=== PATIENT | female | born 1990 | race Caucasian/White ===

== ENCOUNTER 2018-10-22 11:23 | Emergency (ER) | payer OTHER ==
[~2018-10-22] VITALS: Ht 162.6 cm; Wt 68.0 kg
--- NOTE | 2018-10-22 11:35 | NUR ---
c/o boil vaginal area x 3 days. STATES PAIN LEVEL 10/10. PT IS AOX4, AMBULATORY, VSS, RESPIRATIONS EVEN AND UNLABORED. NO ACUTE DISTRESS NOTED. SKIN WARM TO TOUCH, DRY, INTACT. READY FOR EVAL.
--- NOTE | 2018-10-22 11:37 | NUR ---
CHRIS CRUZ AT BEDSIDE
[2018-10-22] MEDS ORDERED: LIDOCAINE 1%-EPI 1:100,000 20 ML VIAL ONE (11:52)
[2018-10-22] MEDS ORDERED: FENTANYL PF 100MCG/2ML AMPUL ONE ×2 (11:53→12:48)
[2018-10-22] MEDS ORDERED: FENTANYL PF 100MCG/2ML AMPUL IV ONE ×2 (12:00→13:00)
[2018-10-22] MEDS ORDERED: LIDOCAINE 1%-EPI 1:100,000 20 ML VIAL TP ONE (12:00)
[2018-10-22] MEDS ORDERED: KETOROLAC TROMETHAMINE INJ 30 MG/ML VIAL ONE (12:48)
[2018-10-22] MEDS ORDERED: KETOROLAC TROMETHAMINE INJ 30 MG/ML VIAL IV ONE (13:00)
--- NOTE | 2018-10-22 13:15 | NUR ---
ASSIST CHRIS CRUZ WITH I&D. PT TOLERATED WELL
[2018-10-22] MEDS ORDERED: SULFAMETH/TRIMETH 800/160 MG 1 UDTAB TABLET PO ONE ×2 (13:16→13:30)
[2018-10-22] MEDS ORDERED: CEPHALEXIN MONOHYDRATE 500 MG CAPSULE PO ONE ×2 (13:16→13:30)
--- NOTE | 2018-10-22 13:25 | NUR ---
IV removed. Catheter intact and site benign. Pressure and 4x4 applied to site. No bleeding noted. Patient discharged to home in stable condition. Written and verbal after care instructions given. Patient verbalizes understanding of instruction.
[2018-10-22 13:32] VITALS: BP 136/76
== END 2018-10-22 13:23 | disposition home or self-care (01) ==
LOC: ER 11:25
DX: L02.215 Cutaneous abscess of perineum (principal)
CPT/HCPCS: A4606; A6403; A6407; J1885; J3010; J3490; Z7610

== ENCOUNTER 2018-10-24 09:50 | Emergency (ER) | END 2018-10-24 10:14 | disposition home or self-care (01) | DX: L02.91 Cutaneous abscess, unspecified (principal) ==

== ENCOUNTER 2019-12-30 10:38 | Emergency (ER) | payer OTHER ==
[~2019-12-30] VITALS: Ht 165.1 cm; Wt 79.4 kg
--- NOTE | 2019-12-30 11:00 | NUR ---
patient came in to the er c/o worsening left leg pain/numbness, injured 2 days ago when she jumped on a scooter, seen at the urgent care. On room air, breathing evenly and unlabored. connected to the monitor and pulse ox. kept comfortable, will continue to monitor accordingly.
--- NOTE | 2019-12-30 11:05 | NUR ---
franck at bedside for x-ray
[2019-12-30 11:24] VITALS: BP 124/91
--- NOTE | 2019-12-30 11:24 | NUR ---
Patient discharged to home in stable condition. Written and verbal after care instructions given. Patient verbalizes understanding of instruction.
== END 2019-12-30 11:24 | disposition home or self-care (01) ==
LOC: ER 10:44
DX: S86.812A Strain of other muscle(s) and tendon(s) at lower leg level, left leg, initial encounter (principal); W18.39XA Other fall on same level, initial encounter; Y93.89 Activity, other specified; Y92.89 Other specified places as the place of occurrence of the external cause; Y99.8 Other external cause status
CPT/HCPCS: 73564-TC

== ENCOUNTER 2020-11-22 23:20 | Emergency (ER) | payer OTHER ==
[~2020-11-22] VITALS: Ht 162.6 cm; Wt 79.4 kg
--- NOTE | 2020-11-22 23:25 | NUR ---
PT BIBSELF C/O DIZZINESS, R FACIAL NUMBNESS, AND R ARM NUMBNESS X3 DAYS. ALSO C/O SOB. PT AAOX4. VITAL SIGNS STABLE. AMBULATORY WITH STEADY GAIT. NO NEURO DEFICIT NOTED. WILL CONTINUE TO MONITOR
--- NOTE | 2020-11-23 00:06 | NUR ---
PT SIGNED WAIVER, INFORMED RADIOLOGY DEPT
--- NOTE | 2020-11-23 00:16 | NUR ---
PT RETURNED FROM CT
[2020-11-23 00:54] VITALS: BP 157/88
--- NOTE | 2020-11-23 00:54 | NUR ---
Patient discharged to home in stable condition. Written and verbal after care instructions given. Patient verbalizes understanding of instruction.Pt ambulatory with a steady gait
== END 2020-11-23 00:55 | disposition home or self-care (01) ==
LOC: ER 23:22
DX: R51.9 Headache, unspecified (principal); R42 Dizziness and giddiness
CPT/HCPCS: 70450-TC

== ENCOUNTER 2023-02-11 13:33 | Emergency (ER) | payer OTHER ==
[~2023-02-11] VITALS: Ht 165.1 cm; Wt 80.7 kg
--- NOTE | 2023-02-11 14:01 | NUR ---
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
--- NOTE | 2023-02-11 14:09 | NUR ---
DR HAWKINS AT BEDSIDE FOR EVAL
--- NOTE | 2023-02-11 14:27 | NUR ---
BLOOD COLLECTED AND SENT TO LAB
--- NOTE | 2023-02-11 14:31 | NUR ---
URINE SAMPLE COLLECTED AND SENT TO LAB.
[2023-02-11 14:47] LABS: BASOPHILS # (AUTO) 0.2 K/uL (0.0-0.2); BASOPHILS % (AUTO) 2.7 % (0.0-2.0); EOSINOPHILS % (AUTO) 1.5 % (0.0-6.0); HEMATOCRIT 44 % (33-45); HEMOGLOBIN 14.5 g/dL (11.5-14.8); LYMPHOCYTES # (AUTO) 3.5 K/uL (0.8-4.8); LYMPHOCYTES % (AUTO) 46.4 % (20.0-44.0); MEAN CORPUSCULAR HGB CONC 33 g/dl (31.0-36.0); MEAN CORPUSCULAR VOLUME 88 fL (82-100); MONOCYTES # (AUTO) 0.4 K/uL (0.1-1.30); MONOCYTES % (AUTO) 5.6 % (2.0-12.0); NEUTROPHILS # (AUTO) 3.3 K/uL (1.8-8.9); NEUTROPHILS % (AUTO) 43.8 % (43.0-81.0); WHITE BLOOD COUNT (AUTO) 7.5 K/uL (4.3-11.0)
[2023-02-11 15:05] LABS: ALANINE AMINOTRANSFERASE 176 U/L (12-78); ALBUMIN 4.4 g/dL (3.4-5.0); ALKALINE PHOSPHATASE 115 U/L (46-116); ASPARTATE AMINOTRANSFERASE 75 U/L (15-37); BILIRUBIN,TOTAL 0.4 mg/dL (0.2-1.0); CALCIUM, SERUM 9.4 mg/dL (8.5-10.1); CARBON DIOXIDE 22 mmol/L (21-32); CHLORIDE 107 mmol/L (98-107); CREATININE 0.6 mg/dL (0.6-1.3); GLUCOSE 97 mg/dL (74-106); POTASSIUM 4.1 mmol/L (3.5-5.1); SODIUM SERUM 140 mmol/L (136-145); TOTAL PROTEIN, SERUM 8.6 g/dL (6.4-8.2); UREA NITROGEN, BLOOD 12 mg/dL (7-18)
[2023-02-11 15:08] VITALS: BP 146/96
--- NOTE | 2023-02-11 15:25 | NUR ---
Patient discharged to home in stable condition. Written and verbal after care instructions given. Patient verbalizes understanding of instruction. IV removed. Catheter intact and site benign. Pressure and 4x4 applied to site. No bleeding noted.
[2023-02-11 16:16] LABS: PLATELET COUNT (AUTO) 295 K/uL (150-450)
== END 2023-02-11 15:27 | disposition home or self-care (01) ==
LOC: ER 13:43
DX: R07.9 Chest pain, unspecified (principal)
CPT/HCPCS: 36415; 71045-TC; 80048-TC; 80076-TC; 84484-TC; 84703-TC; 85025-TC